=== PATIENT | male | born 1975 | race African-American/Black ===

== ENCOUNTER 2018-10-28 17:02 | Emergency (ER) | payer BC ==
[2018-10-28 17:10] VITALS: BP 140/97; PULSE 70; TEMP 98.8; BMI 26.1
--- NOTE | 2018-10-28 17:36 | PDOC ---
History of Present Illness - General Chief Complaint: Sore Throat Stated Complaint: THROAT Time Seen by Provider: 10/28/18 17:36 - History of Present Illness Initial Comments: 10/28/18 18:04 Chief complaint: Sore throat History of present illness: Sore throat today, bilateral ear pain. Review of systems: No fever/chills, headache, chest pain, shortness of breath, abdominal pain, nausea, vomiting, diarrhea. No difficulty swallowing or breathing. Past medical history: Healthy male, no active medical or surgical problems Social/family history: No smoking tobacco or alcohol. Reviewed and otherwise noncontributory Physical exam: Alert and oriented well-developed well-nourished no acute distress cheerful and cooperative Afebrile, vital signs normal HEENT: Nose and ears clear. Throat mildly injected without exudate mass or swelling. No drooling or stridor Neck supple without bruit mass or nodes Chest clear full breath sounds bilaterally no wheezes rales or rhonchi CV regular without murmur rub or gallop Abdomen soft nontender without mass or organomegaly Skin clear, no rash, adequate turgor and wet mucous membranes Impression: Viral pharyngitis, rule out strep Plan: Strep screen, further evaluation and treatment depending on results. Analgesics. Past History - Past Medical History Allergies/Adverse Reactions: Allergies Allergy/AdvReac Type Severity Reaction Status Date / Time No Known Allergies Allergy Verified 10/28/18 17:03 Home Medications: Ambulatory Orders Ibuprofen 800 mg PO TID PRN #20 tablet 10/28/18 COPD: No - Suicide/Smoking/Psychosocial Hx Smoking History: Never smoked Have you smoked in the past 12 months: No Information on smoking cessation initiated: No Hx Alcohol Use: No Drug/Substance Use Hx: No *Physical Exam - Vital Signs Last Vital Signs Temp Pulse Resp BP Pulse Ox 98.8 F 70 20 140/97 100 10/28/18 17:02 10/28/18 17:02 10/28/18 17:02 10/28/18 17:02 10/28/18 17:02 Moderate Sedation - Procedure Monitoring Vital Signs: Procedure Monitoring Vital Signs Temperature 98.8 F 10/28/18 17:02 Pulse Rate 70 10/28/18 17:02 Respiratory Rate 20 10/28/18 17:02 Blood Pressure 140/97 10/28/18 17:02 O2 Sat by Pulse Oximetry (%) 100 10/28/18 17:02 Medical Decision Making - Medical Decision Making 10/28/18 18:26 Rapid strep is negative. Symptomatic treatment and follow-up as necessary. *DC/Admit/Observation/Transfer Diagnosis at time of Disposition: Acute viral pharyngitis - Discharge Dispostion Disposition: HOME Condition at time of disposition: Stable Decision to Admit order: No - Prescriptions Prescriptions: Ibuprofen 800 mg PO TID PRN #20 tablet PRN Reason: fever, sore throat, body aches - Referrals - Patient Instructions Printed Discharge Instructions: DI for Viral Pharyngitis Additional Instructions: Rest, fluids, ibuprofen as directed. Recheck primary physician to 3 days. - Post Discharge Activity Forms/Work/School Notes: Back to Work
[2018-10-28] MEDS ORDERED: IBUPROFEN 400 MG TABLET (FP) PO ONE ×2 (17:44→17:55)
== END 2018-10-28 18:31 | disposition home or self-care (01) ==
LOC: FER 17:02
DX: J02.8 Acute pharyngitis due to other specified organisms (principal); B97.89 Other viral agents as the cause of diseases classified elsewhere
CPT/HCPCS: 87070; 87880; 99282-25